=== PATIENT | female | born 1975 | race Caucasian/White ===

== ENCOUNTER 2017-10-12 16:22 | Emergency (ER) | payer BC, OTHER ==
[~2017-10-12] VITALS: Ht 157.5 cm; Wt 64.0 kg
[2017-10-12] MEDS ORDERED: HYDROcodone/APAP 5/325MG 1 TAB TABLET PO ONE (17:00)
[2017-10-12] MEDS ORDERED: CLIN150C14 PO (17:06)
[2017-10-12] MEDS ORDERED: HYDR-971 PO (17:06)
--- NOTE | 2017-10-12 17:07 | PHYS DOC ---
Past History Past Medical History: Anxiety, Other Past Surgical History: Cancer Surgery Smoking: Non-smoker Alcohol Use: None Drug Use: None Adult General Chief Complaint Chief Complaint: DENTAL PROBLEM HPI HPI 42-year-old female patient states she had right lower tooth fracture about 6 months ago and had episodes of pain off and on but for the last 1 week she has more pain and since yesterday she had some pus drainage of acute area. Patient said the pain radiated to her right ear and rated her pain 10 over 10. Patient denies nausea and vomiting, fever and chills, swallowing problem. Review of Systems Review of Systems Constitutional: Denies fever or chills [] Eyes: Denies change in visual acuity, redness, or eye pain [] HENT: Denies nasal congestion or sore throat [] Respiratory: Denies cough or shortness of breath [] Cardiovascular: No additional information not addressed in HPI [] GI: Denies abdominal pain, nausea, vomiting, bloody stools or diarrhea [] : Denies dysuria or hematuria [] Musculoskeletal: Denies back pain or joint pain [] Integument: Denies rash or skin lesions [] Neurologic: Denies headache, focal weakness or sensory changes [] Endocrine: Denies polyuria or polydipsia [] All other systems were reviewed and found to be within normal limits, except as documented in this note. Current Medications Current Medications Current Medications Medications (Trade) Dose Ordered Sig/David Start Time Stop Time Status Last Admin Dose Admin Acetaminophen/ Hydrocodone Bitart (Lortab 5/325) 1 tab 1X ONCE 10/12/17 17:00 10/12/17 17:01 UNV Allergies Allergies Allergies Coded Allergies Type Severity Reaction Last Updated Verified Penicillins Allergy Unknown swelling 12/24/13 No erythromycin base Allergy Unknown swelling 12/24/13 No ibuprofen Allergy Unknown GI upset 12/24/13 No vancomycin Allergy Unknown red man syndrome 12/24/13 No Physical Exam Physical Exam Constitutional: Well developed, well nourished, mild distress, non-toxic appearance. [] HENT: Normocephalic, atraumatic, bilateral external ears normal, oropharynx moist, no oral exudates, right lower molar# 2 with a large cavity and missing part of tooth and tenderness with gum edema and erythema Eyes: PERRLA, EOMI, conjunctiva normal, no discharge. [] Neck: Normal range of motion, no tenderness, supple, no stridor. [] Cardiovascular:Heart rate regular rhythm, no murmur [] Lungs & Thorax: Bilateral breath sounds clear to auscultation []. [] Neurologic: Alert and oriented X 3, normal motor function, normal sensory function, no focal deficits noted. [] Psychologic: Affect normal, judgement normal, mood normal. [] EKG EKG [] Radiology/Procedures Radiology/Procedures [] Course & Med Decision Making Course & Med Decision Making discharge: I've spoken with the patient and/or caregivers. I've explained the patient's condition, diagnosis and treatment plan based on information available to me at this time. I've answered the patient's and/or caregivers questions and addressed any concerns. The patient and/or caregivers have a good understanding the patient's diagnosis, condition and treatment plan as can be expected at this point. Vital signs have been stabilized. The patient's condition is stable for discharge from the emergency department. The patient will pursue further outpatient evaluation with her primary care provider or other designated consulting physician as outlined in the discharge instructions. Patient and/or caregivers are agreeable to this plan of care and follow-up instructions have been explained in detail. The patient and/or caregivers have received these instructions in written format and expressed understanding of these discharge instructions. The patient and her caregivers are aware that if any significant change in condition or worsening of symptoms should prompt him to immediately return to this of the closest emergency department. If an emergent department is not readily available I would encourage him to call 911. [place] Disclaimer Dragon Disclaimer This electronic medical record was generated, in whole or in part, using a voice recognition dictation system. Departure Departure: Impression: Primary Impression: Dental abscess Additional Impression: Dentalgia Disposition: HOME, SELF-CARE (At 1710) Condition: IMPROVED Referrals: LAVONNE MASTERSON MD (PCP) Patient Instructions: Dental Abscess, Toothache-Brief Additional Instructions: Follow-up with your dentist in 3-5 days Return to ER if not getting better Scripts Hydrocodone Bit/Acetaminophen (NORCO 5-325 TABLET) 1 Each Tablet 1 TAB PO PRN Q6HRS Y for PAIN, #14 TAB 0 Refills Prov: SOHAIL NELSON MD 10/12/17 Clindamycin Hcl (CLINDAMYCIN HCL) 150 Mg Capsule 1 CAP PO QID, #28 CAP Prov: SOHAIL NELSON MD 10/12/17 Problem Qualifiers SOHAIL NELSON MD Oct 12, 2017 17:06
[2017-10-12 18:26] VITALS: BP 101/63
== END 2017-10-12 18:00 | disposition home or self-care (01) ==
LOC: ER 16:22
DX: K04.7 Periapical abscess without sinus (principal); F41.9 Anxiety disorder, unspecified; Z88.1 Allergy status to other antibiotic agents; Z88.6 Allergy status to analgesic agent; Z88.0 Allergy status to penicillin
CPT/HCPCS: 99283

== ENCOUNTER 2020-02-21 11:57 | Emergency (ER) | payer BC, OTHER ==
[~2020-02-21] VITALS: Ht 157.5 cm; Wt 74.3 kg
[~2020-02-21 11:57] MED LIST: CLIN150C14 PO; HYDR-3165 PO
[2020-02-21] MEDS ORDERED: IV NORMAL SALINE 1,000ML 1,000 ML IV ONE (12:30)
--- NOTE | 2020-02-21 12:32 | PHYS DOC ---
Past History Past Medical History: Arthritis, Fibromyalgia, Lung Disease, [place], Other Additional Past Medical Histor: BREAST CANCER 1998; HOME O2 2L/NC Past Surgical History: Other Additional Past Surgical Histo: LEFT MASTECTOMY Smoking: Non-smoker Alcohol Use: None Drug Use: None General Adult EDM: Chief Complaint: ABDOMINAL PAIN HPI: HPI: 45-year-old female presents with abdominal pain. The patient has been having intermittent upper abdominal pain and bloating some time. The patient has this breast cancer and has had radiation therapy. Since that time, she has had an area of her upper abdomen on the left side that will get edematous and then get better. It is now expanded across the midline to include the right side. It still comes and goes but it is staying more than going away. She is concerned today because yesterday and today the area has seemed much more firm. She went to her primary care physician who thought it looked much larger than it used to be so she was advised to come to the emergency room for evaluation. Patient denies fever chills. She is able to eat and drink without difficulty. She only eats once a day. She is having normal urination and bowel movements. Review of Systems: Review of Systems: Constitutional: Denies fever or chills Eyes: Denies change in visual acuity HENT: Denies nasal congestion or sore throat Respiratory: Denies cough or shortness of breath Cardiovascular: Denies chest pain or edema GI: Upper abdominal pain. Denies nausea, vomiting, bloody stools or diarrhea : Denies dysuria Musculoskeletal: Denies back pain or joint pain Integument: Denies rash Neurologic: Denies headache, focal weakness or sensory changes Endocrine: Denies polyuria or polydipsia Lymphatic: Denies swollen glands Psychiatric: Denies depression or anxiety Heart Score: Risk Factors: Risk Factors: DM, Current or recent (<one month) smoker, HTN, HLP, family history of CAD, obesity. Risk Scores: Score 0 - 3: 2.5% MACE over next 6 weeks - Discharge Home Score 4 - 6: 20.3% MACE over next 6 weeks - Admit for Clinical Observation Score 7 - 10: 72.7% MACE over next 6 weeks - Early Invasive Strategies Current Medications: Current Meds: Current Medications Medications (Trade) Dose Ordered Sig/David Start Time Stop Time Status Last Admin Dose Admin Sodium Chloride 1,000 ml @ 1,000 mls/hr 1X ONCE 02/21/20 12:30 02/21/20 13:29 UNV Allergies: Allergies: Allergies Coded Allergies Type Severity Reaction Last Updated Verified Penicillins Allergy Unknown swelling 02/21/20 No erythromycin base Allergy Unknown swelling 02/21/20 No ibuprofen Allergy Unknown GI upset 02/21/20 No vancomycin Allergy Unknown red man syndrome 02/21/20 No Physical Exam: PE: Constitutional: Well developed, well nourished, no acute distress, non-toxic appearance. [] HENT: Normocephalic, atraumatic, bilateral external ears normal, oropharynx moist, no oral exudates, nose normal. [] Eyes: PERRLA, EOMI, conjunctiva normal, no discharge. [] Neck: Normal range of motion, no tenderness, supple, no stridor. [] Cardiovascular:Heart rate regular rhythm, no murmur [] Lungs & Thorax: Bilateral breath sounds clear to auscultation. Left mastectomy. [] Abdomen: Bowel sounds normal, soft, epigastric prominence and moderate tender ness, no palpable masses, no pulsatile masses. [] Skin: Warm, dry, no erythema, no rash. [] Back: No tenderness, no CVA tenderness. [] Extremities: No tenderness, no cyanosis, no clubbing, ROM intact, no edema. [] Neurologic: Alert and oriented X 3, normal motor function, normal sensory function, no focal deficits noted. [] Psychologic: Affect normal, judgement normal, mood normal. [] Current Patient Data: Vital Signs: Vital Signs Date Time Temp Pulse Resp B/P (MAP) Pulse Ox O2 Delivery O2 Flow Rate FiO2 02/21/20 12:04 98.3 117 18 151/95 (113) 96 Room Air EKG: EKG: [] Radiology/Procedures: Radiology/Procedures: [] Impressions: PQRS Compliance Statement: One or more of the following individualized dose reduction techniques were utilized for this examination: 1. Automated exposure control 2. Adjustment of the mA and/or kV according to patient size 3. Use of iterative reconstruction technique CT abdomen/pelvis with contrast 02/21/2020 12:21 PM INDICATION: Abdominal pain, bloating COMPARISON: None available TECHNIQUE: Multiple axial CT images of the abdomen and pelvis were obtained after the intravenous administration of 75 mL of Omnipaque. Coronal and sagittal reformats are provided. FINDINGS: Lung bases are clear. Heart size is within normal limits. Liver, spleen, bilateral adrenal glands, pancreas and kidneys are normal in appearance. No suspicious renal mass. No hydronephrosis. Abdominal aorta is normal in course and caliber. No pathologically enlarged lymph nodes are identified in abdomen and pelvis. There is no free fluid or free intraperitoneal air. Small and large bowel are normal in caliber. No bowel obstruction or inflammation. Appendix is normal. Uterus and adnexa are normal by CT. Urinary bladder is within normal limits given degree of distention. No suspicious osseous normality is identified. IMPRESSION: No acute abnormalities identified in abdomen and pelvis. Electronically signed by: Neema Judge MD (02/21/2020 1:03 PM) [id number] DICTATED AND SIGNED BY: NEEMA JUDGE MD DATE: 02/21/20 1303 CC: SANJEEV METCALF DO; PCP,UNKNOWN ~ Course & Med Decision Making: Course & Med Decision Making Pertinent Labs and Imaging studies reviewed. (See chart for details) The patient's labs are unremarkable. Urinalysis is negative for infection. Her CT of the abdomen and pelvis are negative for acute findings. She does have moderate stool burden especially in the transverse colon. This may be because of the patient's symptoms. I have advised that she do a bowel cleanout with high-dose MiraLAX or magnesium citrate to see if this helps. She does not meet admission criteria. She is stable for discharge at this time. [] Dragon Disclaimer: Dragon Disclaimer: This electronic medical record was generated, in whole or in part, using a voice recognition dictation system. Departure Departure: Impression: Primary Impression: Epigastric abdominal pain Additional Impression: Constipation by delayed colonic transit Disposition: HOME/RESIDENCE PRIOR TO ADM Condition: STABLE Referrals: PCP,UNKNOWN (PCP) Justification of Admission: Justification of Admission: Justification of Admission Dx: N/A SANJEEV METCALF DO Feb 21, 2020 12:32
[2020-02-21] MEDS ORDERED: CONTRAST GIVEN. MC PRN (12:45)
[2020-02-21] MEDS ORDERED: IOHEXOL 300 MG/ML 75 ML VIAL. IV ONE (12:45)
[2020-02-21 12:51] LABS: BASO % 0 % (0-3); EOS % 0 % (0-3); HEMATOCRIT 39.2 % (36.0-47.0); HEMOGLOBIN 13.6 g/dL (12.0-15.5); LYMPH # 1.7 x10^3/uL (1.0-4.8); LYMPH % 18 % (24-48); MEAN CORPUSCULAR HEMOGLOBIN 38 pg (25-35); MEAN CORPUSCULAR HGB CONC 35 g/dL (31-37); MEAN CORPUSCULAR VOLUME 109 fL (79-100); MONO # 0.2 x10^3/uL (0.0-1.1); MONO % 2 % (0-9); NEUT # 7.4 x10^3uL (1.8-7.7); NEUT % 80 % (31-73); PLATELET COUNT 247 x10^3/uL (140-400); RED BLOOD COUNT 3.58 x10^6/uL (3.50-5.40); RED CELL DISTRIBUTION WIDTH 14.2 % (11.5-14.5); WHITE BLOOD COUNT 9.3 x10^3/uL (4.0-11.0)
--- NOTE | 2020-02-21 13:06 | RAD ---
PQRS Compliance Statement: One or more of the following individualized dose reduction techniques were utilized for this examination: 1. Automated exposure control 2. Adjustment of the mA and/or kV according to patient size 3. Use of iterative reconstruction technique CT abdomen/pelvis with contrast 02/21/2020 12:21 PM INDICATION: Abdominal pain, bloating COMPARISON: None available TECHNIQUE: Multiple axial CT images of the abdomen and pelvis were obtained after the intravenous administration of 75 mL of Omnipaque. Coronal and sagittal reformats are provided. FINDINGS: Lung bases are clear. Heart size is within normal limits. Liver, spleen, bilateral adrenal glands, pancreas and kidneys are normal in appearance. No suspicious renal mass. No hydronephrosis. Abdominal aorta is normal in course and caliber. No pathologically enlarged lymph nodes are identified in abdomen and pelvis. There is no free fluid or free intraperitoneal air. Small and large bowel are normal in caliber. No bowel obstruction or inflammation. Appendix is normal. Uterus and adnexa are normal by CT. Urinary bladder is within normal limits given degree of distention. No suspicious osseous normality is identified. IMPRESSION: No acute abnormalities identified in abdomen and pelvis. Electronically signed by: Marybel Judge MD (02/21/2020 1:03 PM) [id number]
[2020-02-21 13:10] LABS: CALCIUM 8.7 mg/dL (8.5-10.1); GFR 59.4; POTASSIUM 4.4 mmol/L (3.5-5.1)
[2020-02-21 13:16] LABS: ALBUMIN 3.8 g/dL (3.4-5.0); TOTAL BILIRUBIN 0.2 mg/dL (0.2-1.0); TOTAL PROTEIN 7.5 g/dL (6.4-8.2)
[2020-02-21 13:43] LABS: BILIRUBIN,URINE NEG (NEG); CLARITY,URINE CLEAR; COLOR,URINE STRAW; GLUCOSE,URINE NEG (NEG)
[2020-02-21 13:44] LABS: BACTERIA,URINE 0 /HPF (0-FEW); NITRITE,URINE NEG (NEG); RBC,URINE 0 /HPF (0-2); UROBILINOGEN,URINE 0.2 mg/dL (0.2 mg/dL)
[2020-02-21 13:59] VITALS: BP 119/83
== END 2020-02-21 13:57 | disposition home or self-care (01) ==
LOC: ER 11:57
DX: K59.01 Slow transit constipation (principal); R10.13 Epigastric pain; M19.90 Unspecified osteoarthritis, unspecified site; M79.7 Fibromyalgia; I25.2 Old myocardial infarction; Z88.0 Allergy status to penicillin; Z88.1 Allergy status to other antibiotic agents; Z88.6 Allergy status to analgesic agent
CPT/HCPCS: 36415; 74177; 80053; 81001; 83690; 85025; 96360; 99285; J7030; Q9967

== ENCOUNTER 2021-01-05 14:50 | Emergency (ER) | payer BC, MEDICARE ==
[~2021-01-05] VITALS: Ht 157.5 cm; Wt 69.7 kg
[~2021-01-05 14:50] MED LIST changes: -CLIN150C14 PO; +CLIN150C15 PO
[2021-01-05] MEDS ORDERED: methylPREDNISolone SOD SUCC PF 125 MG/2 ML VIAL. IV ONE (15:45)
[2021-01-05] MEDS ORDERED: IPRATRPIUM/ALBUTEROL 0.5/2.5MG 3 ML NEBU. NEB ONE (15:45)
[2021-01-05 15:52] LABS: BASO % 0 % (0-3); EOS # 0.1 x10^3/uL (0.0-0.7); EOS % 1 % (0-3); HEMATOCRIT 30.7 % (36.0-47.0); HEMOGLOBIN 11.1 g/dL (12.0-15.5); LYMPH # 1.5 x10^3/uL (1.0-4.8); LYMPH % 10 % (24-48); MEAN CORPUSCULAR HEMOGLOBIN 40 pg (25-35); MEAN CORPUSCULAR HGB CONC 36 g/dL (31-37); MEAN CORPUSCULAR VOLUME 112 fL (79-100); MONO # 0.6 x10^3/uL (0.0-1.1); MONO % 4 % (0-9); NEUT # 12.1 x10^3uL (1.8-7.7); NEUT % 85 % (31-73); PLATELET COUNT 207 x10^3/uL (140-400); RED BLOOD COUNT 2.75 x10^6/uL (3.50-5.40); RED CELL DISTRIBUTION WIDTH 13.6 % (11.5-14.5); WHITE BLOOD COUNT 14.3 x10^3/uL (4.0-11.0)
[2021-01-05 15:59] LABS: CALCIUM 8.1 mg/dL (8.5-10.1); CREATININE 0.8 mg/dL (0.6-1.0); GFR 76.9; POTASSIUM 3.5 mmol/L (3.5-5.1)
[2021-01-05] MEDS ORDERED: IV NORMAL SALINE 1,000ML 1,000 ML IV ONE (16:00)
[2021-01-05] MEDS ORDERED: ALBUTEROL SULFATE 8GM INHALER. INH ONE (16:00)
[2021-01-05 16:06] LABS: ALBUMIN 2.9 g/dL (3.4-5.0); ALBUMIN/GLOBULIN RATIO 0.8 (1.0-1.7); TOTAL BILIRUBIN 0.4 mg/dL (0.2-1.0); TOTAL PROTEIN 6.6 g/dL (6.4-8.2)
[2021-01-05] MEDS ORDERED: ALBUTEROL SULFATE 8GM INHALER. ONE (16:06)
--- NOTE | 2021-01-05 16:10 | RAD ---
EXAMINATION: XR CHEST 1V CLINICAL HISTORY: Shortness of breath EXAM DATE/TIME: 01/05/2021 3:44 PM COMPARISON: None FINDINGS: Lines, Tubes, and Devices: None. Cardiomediastinal Silhouette: Left heart border obscured by adjacent airspace opacities. Lungs and Pleura: Diffuse patchy and hazy airspace opacities throughout the bilateral lungs. No evide nce of pleural effusion or pneumothorax. Bones and Soft Tissues: Mild dextroconvex curvature of the thoracic spine. IMPRESSION: Diffuse patchy airspace disease/edema in the bilateral lungs, suspicious for atypical or viral pneumo tod. Correlate clinically. Electronically signed by: Danilo Dennis DO (01/05/2021 4:08 PM) [facility]OLO
--- NOTE | 2021-01-05 16:24 | EKG ---
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
[2021-01-05 16:38] LABS: PLT ESTIMATE ADEQUATE (ADEQUATE)
--- NOTE | 2021-01-05 16:43 | PHYS DOC ---
Past History Past Medical History: Arthritis, Fibromyalgia, Lung Disease, [place], Other Additional Past Medical Histor: BREAST CANCER 1998; HOME O2 2L/[place] (HUANG BAER APRN) Past Surgical History: Angioplasty, Other Additional Past Surgical Histo: LEFT MASTECTOMY, stem cell transplant (HUANG BAER APRN) Smoking: Non-smoker Alcohol Use: None Drug Use: None (HUANG BAER APRN) General Adult EDM: Chief Complaint: SHORTNESS OF BREATH HPI: HPI: Patient is a 45-year-old female presents with shortness of breath. Patient states she started feeling short of breath yesterday morning. Patient has a history of COPD and CHF. Patient states that she has been using her inhaler and using oxygen at home. Patient states that she had to increase oxygen to 5 L and that is when she called EMS. Reports a nonproductive cough and wheezing. States "I felt like I was running a fever but I never took my temperature". (HUANG BAER APRN) Review of Systems: Review of Systems: Constitutional: Reports fever or chills Eyes: Denies change in visual acuity HENT: Denies nasal congestion or sore throat Respiratory: Reports nonproductive cough and shortness of breath Cardiovascular: Denies chest pain or edema GI: Denies abdominal pain, nausea, vomiting, bloody stools or diarrhea : Denies dysuria Musculoskeletal: Denies back pain or joint pain Integument: Denies rash Neurologic: Denies headache, focal weakness or sensory changes Endocrine: Denies polyuria or polydipsia Lymphatic: Denies swollen glands Psychiatric: Denies depression or anxiety (HUANG BAER APRN) Current Medications: Current Meds: Current Medications Medications (Trade) Dose Ordered Sig/David Start Time Stop Time Status Last Admin Dose Admin Albuterol Sulfate (Ventolin Hfa Inhaler) 60 puff STK-MED ONCE 01/05/21 16:06 01/05/21 16:06 DC Albuterol/ Ipratropium (Duoneb) 3 ml 1X ONCE 01/05/21 15:45 01/05/21 15:46 DC Methylprednisolone Sodium Succinate (SOLU-Medrol 125MG VIAL) 125 mg 1X ONCE 01/05/21 15:45 01/05/21 15:46 DC 01/05/21 16:12 125 MG Sodium Chloride 1,000 ml @ 1,000 mls/hr 1X ONCE 01/05/21 16:00 01/05/21 16:59 01/05/21 16:12 1,000 MLS/HR (HUANG BAER APRN) Allergies: Allergies: Allergies Coded Allergies Type Severity Reaction Last Updated Verified Penicillins Allergy Unknown swelling 02/21/20 No codeine Allergy Unknown 01/05/21 Yes erythromycin base Allergy Unknown swelling 02/21/20 No ibuprofen Allergy Unknown GI upset 02/21/20 No vancomycin Allergy Unknown red man syndrome 02/21/20 No (HUANG BAER APRN) Physical Exam: PE: Constitutional: Well developed, well nourished, no acute distress, non-toxic appearance. [] HENT: Normocephalic, atraumatic, bilateral external ears normal, oropharynx moist, no oral exudates, nose normal. [] Eyes: PERRLA, EOMI, conjunctiva normal, no discharge. [] Neck: Normal range of motion, no tenderness, supple, no stridor. [] Cardiovascular: Sinus tachycardia Lungs & Thorax: Wheezing on auscultation [] Abdomen: Bowel sounds normal, soft, no tenderness, no masses, no pulsatile masses. [] Skin: Warm, dry, no erythema, no rash. [] Back: No tenderness, no CVA tenderness. [] Extremities: No tenderness, no cyanosis, no clubbing, ROM intact, no edema. [] Neurologic: Alert and oriented X 3, normal motor function, normal sensory function, no focal deficits noted. [] Psychologic: Affect normal, judgement normal, mood normal. [] (HUANG BAER APRN) Current Patient Data: Labs: Laboratory Tests Test 01/05/21 15:00 01/05/21 16:00 White Blood Count 14.3 x10^3/uL (4.0-11.0) H Red Blood Count 2.75 x10^6/uL (3.50-5.40) L Hemoglobin 11.1 g/dL (12.0-15.5) L Hematocrit 30.7 % (36.0-47.0) L Mean Corpuscular Volume 112 fL (79-100) H Mean Corpuscular Hemoglobin 40 pg (25-35) H Mean Corpuscular Hemoglobin Concent 36 g/dL (31-37) Red Cell Distribution Width 13.6 % (11.5-14.5) Platelet Count 207 x10^3/uL (140-400) Neutrophils (%) (Auto) 85 % (31-73) H Lymphocytes (%) (Auto) 10 % (24-48) L Monocytes (%) (Auto) 4 % (0-9) Eosinophils (%) (Auto) 1 % (0-3) Basophils (%) (Auto) 0 % (0-3) Neutrophils # (Auto) 12.1 x10^3uL (1.8-7.7) H Lymphocytes # (Auto) 1.5 x10^3/uL (1.0-4.8) Monocytes # (Auto) 0.6 x10^3/uL (0.0-1.1) Eosinophils # (Auto) 0.1 x10^3/uL (0.0-0.7) Basophils # (Auto) 0.0 x10^3/uL (0.0-0.2) Platelet Estimate Pending Sodium Level 144 mmol/L (136-145) Potassium Level 3.5 mmol/L (3.5-5.1) Chloride Level 107 mmol/L (98-107) Carbon Dioxide Level 25 mmol/L (21-32) Anion Gap 12 (6-14) Blood Urea Nitrogen 7 mg/dL (7-20) Creatinine 0.8 mg/dL (0.6-1.0) Estimated GFR (Cockcroft-Gault) 76.9 BUN/Creatinine Ratio 9 (6-20) Glucose Level 95 mg/dL (70-99) Calcium Level 8.1 mg/dL (8.5-10.1) L Total Bilirubin 0.4 mg/dL (0.2-1.0) Aspartate Amino Transferase (AST) 49 U/L (15-37) H Alanine Aminotransferase (ALT) 20 U/L (14-59) Alkaline Phosphatase 139 U/L (46-116) H Total Protein 6.6 g/dL (6.4-8.2) Albumin 2.9 g/dL (3.4-5.0) L Albumin/Globulin Ratio 0.8 (1.0-1.7) L XN-Tuk-U-Type Natriuretic Peptide 1628 pg/mL (0-124) H Vital Signs: Vital Signs Date Time Temp Pulse Resp B/P (MAP) Pulse Ox O2 Delivery O2 Flow Rate FiO2 01/05/21 14:50 99.6 116 20 119/83 78 Room Air (HUANG BAER APRN) EKG: EKG: Sinus tachycardia. Heart rate 108 bpm. (HUANG BAER APRN) Radiology/Procedures: Radiology/Procedures: []EXAMINATION: XR CHEST 1V CLINICAL HISTORY: Shortness of breath EXAM DATE/TIME: 01/05/2021 3:44 PM COMPARISON: None FINDINGS: Lines, Tubes, and Devices: None. Cardiomediastinal Silhouette: Left heart border obscured by adjacent airspace opacities. Lungs and Pleura: Diffuse patchy and hazy airspace opacities throughout the bilateral lungs. No evidence of pleural effusion or pneumothorax. Bones and Soft Tissues: Mild dextroconvex curvature of the thoracic spine. IMPRESSION: Diffuse patchy airspace disease/edema in the bilateral lungs, suspicious for atypical or viral pneumonia. Correlate clinically. Electronically signed by: Danilo Dennis DO (01/05/2021 4:08 PM) [facility] Ex[facility]: CT of chest with contrast INDICATION: Shortness of breath, abnormal chest x-ray TECHNIQUE: Sequential axial images through the chest obtained following the administration of 100 mL of Isovue 3 7 IV contrast. Sagittal and coronal reformatted images were reconstructed from the axial data and reviewed. 3-D re formatted images were reconstructed from the axial data and reviewed. Exposure: One or more of the following in the visualized dose reduction techniques were utilized for this examination: 1. Automated exposure control 2. Adjustment of the MA and/or KV according to patient size 3. Use of iterative of reconstructive technique Comparisons: Chest x-ray same day FINDINGS: Visualized portions of the thyroid are unremarkable. Numerous prominent mildly enlarged bilateral hilar, and paratracheal lymph nodes. Heart size is normal. No pericardial effusion. Thoracic aorta has a normal course and caliber. Pulmonary artery is not enlarged. No pulmonary embolus identified within the main, lobar or segmental pulmonary arteries. Airways are patent. Extensive bilateral airspace disease. No pneumothorax. No suspicious lung nodules. No pleural effusion or thickening. Visualized upper abdomen is unremarkable. No suspicious osseous lesions or acute fractures. IMPRESSION: 1. No pulmonary embolus identified within the main, lobar or segmental pulmonary arteries. 2. Extensive patchy bilateral airspace disease may represent infectious or inflammatory process versus edema Electronically signed by: Kelly Jalloh MD (01/05/2021 6:10 PM) [facility] (HUANG BAER APRN) Heart Score: C/O Chest Pain: No Risk Factors: Risk Factors: DM, Current or recent (<one month) smoker, HTN, HLP, family history of CAD, obesity. Risk Scores: Score 0 - 3: 2.5% MACE over next 6 weeks - Discharge Home Score 4 - 6: 20.3% MACE over next 6 weeks - Admit for Clinical Observation Score 7 - 10: 72.7% MACE over next 6 weeks - Early Invasive Strategies (HUANG BAER APRN) Course & Med Decision Making: Course & Med Decision Making Pertinent Labs and Imaging studies reviewed. (See chart for details) [] 45-year-old female who presents with shortness of breath since yesterday morning. Patient also has wheezing and nonproductive cough. Patient states that she has oxygen at home as needed and has had to use oxygen since yesterday morning. Patient states she was up to 5 L and that is why she called EMS. Patient has also been using her inhaler more often. X-ray shows pneumonia. Patient started on Zithromax and Rocephin. Normal saline bolus given. Patient also given Solu-Medrol and albuterol inhaler. BNP 1628. WBCs 14.3. Patient states that she has a history of breast cancer 20 years ago and the medication they had her on caused heart failure. D-dimer was elevated. CTA negative for PE. VBG pH 7.30, PO2 74, HCO3 23, SaO2 93%. Patient was also reporting some anxiety. Patient given 2 mg of Versed. Patient also given 40 of Lovenox prophylactically. Patient's O2 85% on 5 L nasal cannula. Patient placed on CPAP. I spoke with Dr. Chao who will admit patient to [facility] for pneumonia, hypoxia, PUI. (HUANG BAER APRN) Course & Med Decision Making Did not see or evaluate patient. Agree with CLINICAL OFFICE TECHNICIAN's work-up and disposition per note. (ROB HENSLEY MD) Dragon Disclaimer: Dragon Disclaimer: This electronic medical record was generated, in whole or in part, using a voice recognition dictation system. (HUNAG BAER APRN) Departure Departure: Impression: Primary Impression: Pneumonia Qualified Codes: J18.9 - Pneumonia, unspecified organism Additional Impression: Hypoxia Disposition: 02 SHORT TERM HOSPITAL Admitting Physician: Kevin Chao (HUANG BAER APRN) Condition: STABLE Referrals: PCP,NO (PCP) HUANG BAER APRN Jan 05, 2021 16:43 ROB HENSLEY MD Jan 06, 2021 00:10
[2021-01-05] MEDS ORDERED: AZITHROMYCIN 500 MG in IV NORMAL SALINE 250ML 250 ML IV ONE (17:30)
[2021-01-05] MEDS ORDERED: IOHEXOL 350 MG/ML 100 ML VIAL. IV ONE (17:30)
[2021-01-05] MEDS ORDERED: AZITHROMYCIN 500 MG VIAL. IV ONE (18:02)
[2021-01-05] MEDS ORDERED: cefTRIAXone SODIUM 1 GM VIAL ONE (18:02)
[2021-01-05] MEDS ORDERED: IV NORMAL SALINE 50ML 50 ML ONE (18:02)
[2021-01-05] MEDS ORDERED: IV NORMAL SALINE 250ML 250 ML ONE (18:02)
--- NOTE | 2021-01-05 18:12 | RAD ---
Exam: CT of chest with contrast INDICATION: Shortness of breath, abnormal chest x-ray TECHNIQUE: Sequential axial images through the chest obtained following the administration of 100 mL of Isovue 3 7 IV contrast. Sagittal and coronal reformatted images were reconstructed from the axial data and reviewed. 3-D reformatted images were reconstructed from the axial data and reviewed. Exposure: One or more of the following in the visualized dose reduction techniques were utilized for this examination: 1. Automated exposure control 2. Adjustment of the MA and/or KV according to patient size 3. Use of iterative of reconstructive technique Comparisons: Chest x-ray same day FINDINGS: Visualized portions of the thyroid are unremarkable. Numerous prominent mildly enlarged bilateral hil ar, and paratracheal lymph nodes. Heart size is normal. No pericardial effusion. Thoracic aorta has a normal course and caliber. Pulmon linwood artery is not enlarged. No pulmonary embolus identified within the main, lobar or segmental pulmo nary arteries. Airways are patent. Extensive bilateral airspace disease. No pneumothorax. No suspicious lung nodules . No pleural effusion or thickening. Visualized upper abdomen is unremarkable. No suspicious osseous lesions or acute fractures. IMPRESSION: 1. No pulmonary embolus identified within the main, lobar or segmental pulmonary arteries. 2. Extensive patchy bilateral airspace disease may represent infectious or inflammatory process vers us edema Electronically signed by: Kelly Jalloh MD (01/05/2021 6:10 PM) [facility]
[2021-01-05 19:23] LABS: BACTERIA,URINE 0 /HPF (0-FEW); BILIRUBIN,URINE NEG (NEG); CLARITY,URINE CLEAR; COLOR,URINE YELLOW; GLUCOSE,URINE NEG (NEG); NITRITE,URINE NEG (NEG); SQUAMOUS EPITHELIAL CELL,UR FEW /LPF; UROBILINOGEN,URINE 0.2 mg/dL (0.2 mg/dL); WBC,URINE 0 /HPF (0-4)
[2021-01-05] MEDS ORDERED: ENOXAPARIN 40 MG/0.4 ML SYRINGE. SQ ONE (20:00)
[2021-01-05] MEDS ORDERED: MIDAZOLAM HCL PF 5 MG/5 ML VIAL. IV ONE (20:15)
[2021-01-05 20:55] VITALS: BP 119/72
== END 2021-01-05 20:56 | disposition short-term general hospital (02) ==
LOC: ER 14:50 → 1 SOUTH 19:06 → UNDOADMIN 19:06 → ER 20:56
DX: J18.9 Pneumonia, unspecified organism (principal); R09.02 Hypoxemia; M19.90 Unspecified osteoarthritis, unspecified site; M79.7 Fibromyalgia; I25.2 Old myocardial infarction; Z20.822 Contact with and (suspected) exposure to COVID-19; Z98.61 Coronary angioplasty status; Z88.0 Allergy status to penicillin; Z88.1 Allergy status to other antibiotic agents; Z88.6 Allergy status to analgesic agent
CPT/HCPCS: 36415; 71045; 71275; 80053; 81001; 82803; 83605; 83880; 85025; 85379; 86140; 87040; 93005; 94640; 94660; 96361; 96365; 96372; 96375; 99285; C9803; J0456; J0696; J1650; J2250; J2930; J7030; J7050; Q9967; U0003; 94664

== ENCOUNTER 2021-09-25 17:51 | Emergency (ER) | payer BC, MEDICARE ==
[~2021-09-25] VITALS: Ht 157.5 cm; Wt 69.7 kg
[~2021-09-25 17:51] MED LIST changes: -CLIN150C15 PO; +CLIN150C16 PO
[2021-09-25] MEDS ORDERED: DEXAMETHASONE SOD PHOS 10 MG/ML VIAL. IM ONE (19:00)
[2021-09-25] MEDS ORDERED: PRED-220 PO (19:04)
[2021-09-25] MEDS ORDERED: TRIA15OI32 TP (19:07)
--- NOTE | 2021-09-25 19:07 | PHYS DOC ---
Past History Past Medical History: Arthritis, Fibromyalgia, Lung Disease, [place], Other Additional Past Medical Histor: BREAST CANCER 1998; HOME O2 2L/NC Past Surgical History: Angioplasty, Other Additional Past Surgical Histo: LEFT MASTECTOMY, stem cell transplant Smoking: Non-smoker Alcohol Use: None Drug Use: None General Adult EDM: Chief Complaint: SKIN RASH/ABSCESS HPI: HPI: 46-year-old female presents with rash of the left ear face and left chest. The patient was trying to put in a new gold earring. A little while later, she started to have swelling of the left earlobe. This spread to the left side of her face and neck. She also has an area of redness on her left upper chest wall. It is intensely pruritic. The patient has put weight for a couple days but the itching is driving her crazy. No known topical allergies except nickel. She does not recall getting anything on the rest of her face and chest but she has tried Benadryl without relief. Review of Systems: Review of Systems: Constitutional: Denies fever or chills Eyes: Denies change in visual acuity HENT: Denies nasal congestion or sore throat Respiratory: Denies cough or shortness of breath Cardiovascular: Denies chest pain or edema GI: Denies abdominal pain, nausea, vomiting, bloody stools or diarrhea : Denies dysuria Musculoskeletal: Denies back pain or joint pain Integument: Rash Neurologic: Denies headache, focal weakness or sensory changes Endocrine: Denies polyuria or polydipsia Lymphatic: Denies swollen glands Psychiatric: Denies depression or anxiety Current Medications: Current Meds: Current Medications Medications (Trade) Dose Ordered Sig/[facility] Start Time Stop Time Status Last Admin Dose Admin Dexamethasone Sodium Phosphate (Decadron) 10 mg 1X ONCE 09/25/21 19:00 09/25/21 19:01 Allergies: Allergies: Allergies Coded Allergies Type Severity Reaction Last Updated Verified Penicillins Allergy Intermediate swelling 09/25/21 No codeine Allergy Intermediate 09/25/21 Yes erythromycin base Allergy Intermediate swelling 09/25/21 No vancomycin Allergy Intermediate red man syndrome 09/25/21 No nickel Allergy Unknown 09/25/21 Yes ibuprofen Adverse Reaction Intermediate GI upset 09/25/21 No Physical Exam: PE: Constitutional: Well developed, well nourished, no acute distress, non-toxic appearance. [] HENT: Normocephalic, atraumatic, bilateral external ears normal, oropharynx moist, no oral exudates, nose normal. [] Eyes: PERRLA, EOMI, conjunctiva normal, no discharge. [] Neck: Normal range of motion, no tenderness, supple, no stridor. [] Cardiovascular:Heart rate regular rhythm, no murmur [] Lungs & Thorax: Bilateral breath sounds clear to auscultation [] Abdomen: Bowel sounds normal, soft, no tenderness, no masses, no pulsatile masses. [] Skin: Erythematous, raised papules of the left earlobe, left neck, left upper chest consistent with urticaria. [] Back: No tenderness, no CVA tenderness. [] Extremities: No tenderness, no cyanosis, no clubbing, ROM intact, no edema. [] Neurologic: Alert and oriented X 3, normal motor function, normal sensory function, no focal deficits noted. [] Psychologic: Affect normal, judgement normal, mood normal. [] Current Patient Data: Vital Signs: Vital Signs Date Time Temp Pulse Resp B/P (MAP) Pulse Ox O2 Delivery O2 Flow Rate FiO2 09/25/21 18:15 97.5 92 18 133/79 (97) EKG: EKG: [] Radiology/Procedures: Radiology/Procedures: [] Heart Score: C/O Chest Pain: N/A Risk Factors: Risk Factors: DM, Current or recent (<one month) smoker, HTN, HLP, family history of CAD, obesity. Risk Scores: Score 0 - 3: 2.5% MACE over next 6 weeks - Discharge Home Score 4 - 6: 20.3% MACE over next 6 weeks - Admit for Clinical Observation Score 7 - 10: 72.7% MACE over next 6 weeks - Early Invasive Strategies Course & Med Decision Making: Course & Med Decision Making Pertinent Labs and Imaging studies reviewed. (See chart for details) The patient appears to be having a topical allergic reaction. I will treat her with tomograms of Decadron IM and a steroid taper for home. She is stable for discharge at this time. [] Dragon Disclaimer: Dragon Disclaimer: This electronic medical record was generated, in whole or in part, using a voice recognition dictation system. Departure Departure: Impression: Primary Impression: Allergic reaction to chemical substance Qualified Codes: T65.91XA - Toxic effect of unspecified substance, accidental (unintentional), initial encounter Disposition: HOME / SELF CARE / HOMELESS Condition: STABLE Referrals: NON,STAFF (PCP) Patient Instructions: Allergy Skin Testing Scripts Triamcinolone Acetonide (TRIAMCINOLONE ACETONIDE 0.1% OINT) 15 Gm Oint...g. 1 [facility] TP BID for rash for 7 Days, #1 PKG Prov: SANJEEV METACLF DO 09/25/21 Prednisone (PREDNISONE) 10 Mg Tablet 10 MG PO UD for PREDNISONE TAPER, #27 TAB 0 Refills Take 5 tablets by mouth daily for 3 days, then take 3 tablets by mouth daily for 2 days, then take 2 tablet by mouth daily for 2 days, then take 1 tablet by mouth daily for 2 days, then stop. Prov: SANJEEV METCALF DO 09/25/21 SANJEEV METCALF DO Sep 25, 2021 19:07
[2021-09-25 19:20] VITALS: BP 130/72
== END 2021-09-25 19:20 | disposition home or self-care (01) ==
LOC: ER 17:51
DX: T65.91XA Toxic effect of unspecified substance, accidental (unintentional), initial encounter (principal); R21 Rash and other nonspecific skin eruption; M19.90 Unspecified osteoarthritis, unspecified site; M79.7 Fibromyalgia; I25.2 Old myocardial infarction; Z88.0 Allergy status to penicillin; Z88.5 Allergy status to narcotic agent; Z88.1 Allergy status to other antibiotic agents; Z88.8 Allergy status to other drugs, medicaments and biological substances; Y92.89 Other specified places as the place of occurrence of the external cause
CPT/HCPCS: 96372; 99283; J1100